=== PATIENT | male | born 1985 | race Caucasian/White ===

== ENCOUNTER 2017-06-08 21:57 | Emergency (ER) | payer OTHER ==
[~2017-06-08] VITALS: Ht 180.3 cm; Wt 117.8 kg
[~2017-06-08 21:57] MED LIST: FLUO40CA8 PO; NAPR1TAB9 PO; PANT40TA PO
[2017-06-08 22:13] VITALS: TEMP 36.7; Ht 180.3 cm; Wt 117.8 kg
[2017-06-08] MEDS ORDERED: KETOROLAC TROMETHAMINE 30 MG/ML VIAL IV STA (22:52)
[2017-06-08] MEDS ORDERED: LIDOCAINE/EPINEPH/TETRACAINE 1 EA SYR EXT STA (23:24)
[2017-06-08 23:26] LABS: BASO % 0.2 %; BASO ABS # 0.02 K/uL (0-0.2); COMPLETE YES; EOS % 1.8 %; HEMATOCRIT 45.5 % (42-52); IG% 0.4 %; MEAN CELL VOLUME 83.2 fL (80-100); MEAN CORPUSCULAR HEMOGLOBIN 29.4 pg (25-34); MEAN CORPUSCULAR HGB CONC 35.4 g/dl (32-36); MEAN PLATELET VOLUME 11.7 fL (7.4-10.4); MONO % 9.3 %; NEUT % 64.3 %; PLATELET COUNT 177 K/uL (130-400); RED BLOOD COUNT 5.47 M/uL (4.7-6.1); WHITE BLOOD COUNT 12.07 K/uL (4.8-10.8)
[2017-06-08] MEDS ORDERED: CEFTRIAXONE SOD INJ 1 GM ADDVIAL IV STA (23:38)
[2017-06-08 23:54] LABS: BUN/CREATININE RATIO 9.8 (10-20); C-REACTIVE PROTEIN 1.87 mg/dl (0-0.29); CALCIUM 8.6 mg/dl (8.5-10.1); CREATININE 1.1 mg/dl (0.60-1.40); POTASSIUM 3.6 mmol/L (3.5-5.1)
[2017-06-09] MEDS ORDERED: CEPHALEXIN 500MG HOME PACK 1 EA BTL PO ONE (01:00)
[2017-06-09] MEDS ORDERED: SEPTRA DS HOME PACK 1 EA VIAL PO ONE (01:00)
[2017-06-09] MEDS ORDERED: CEPH500C PO (01:16)
[2017-06-09] MEDS ORDERED: SULF800T23 PO (01:16)
--- NOTE | 2017-06-09 01:18 | EMERGENCY ROOM VISIT NOTE ---
History First contact with patient: 22:41 Chief Complaint: ELBOW PAIN/INJURY Stated Complaint: RT ELBOW History of Present Illness The patient is a 32 year old male who presents to the Emergency Room with complaints of right elbow pain. The patient states that he has noticed worsening soreness in his right elbow over the past 2 days. He states that he has also noticed some redness. He rates the discomfort a 7/10. He denies any history of elbow issues. He denies any recent injury to the elbow. He denies any fevers/chills. Review of Systems A complete 10 point review of systems was reviewed with the patient with pertinent positives and negatives as per history of present illness. All else were negative. Family History Diabetes mellitus FH: heart disease Hypertension Social History Smoking Status: Never Smoker Alcohol Use: occasionally Drug Use: none Current/Historical Medications Scheduled Cephalexin Monohydrate (Keflex), 500 MG PO QID Fluoxetine (Prozac), 40 MG PO DAILY Pantoprazole Sodium (Protonix), 40 MG PO DAILY Sulfa/Trimethoprim (Bactrim Ds 800MG/160MG), 1 TAB PO BID Physical Exam Vital Signs Date Time Temp Pulse Resp B/P (MAP) Pulse Ox O2 Delivery O2 Flow Rate FiO2 06/09/17 01:20 71 18 134/79 96 Room Air 06/08/17 22:13 36.7 73 16 126/79 97 Room Air Physical Exam VITALS: Vitals are noted on the nurse's note and reviewed by myself. Vital signs stable. GENERAL: This is a 32-year-old male, in no acute distress, nondiaphoretic, well- developed well-nourished. SKIN: Erythema and swelling noted over the right olecranon process. HEART: Regular rate and rhythm without murmurs gallops or rubs. LUNGS: Clear to auscultation bilaterally without wheezes, rales or rhonchi. MUSCULOSKELETAL: There is erythema, edema and tenderness over the olecranon process with a minimal surrounding cellulitis. Full range of motion of the right elbow. Radial pulse 2+. NEURO: Patient was alert and oriented to person place and time. Medical Decision & Procedures ER Provider Diagnostic Interpretation: RIGHT ELBOW: No significant effusion. No acute findings. Laboratory Results 06/08/17 23:05 Red Blood Count 5.47, Mean Corpuscular Volume 83.2, Mean Corpuscular Hemoglobin 29.4, Mean Corpuscular Hemoglobin Concent 35.4, Mean Platelet Volume 11.7, Neutrophils (%) (Auto) 64.3, Lymphocytes (%) (Auto) 24.0, Monocytes (%) (Auto) 9.3, Eosinophils (%) (Auto) 1.8, Basophils (%) (Auto) 0.2, Neutrophils # (Auto) 7.76, Lymphocytes # (Auto) 2.90, Monocytes # (Auto) 1.12, Eosinophils # (Auto) 0.22, Basophils # (Auto) 0.02 06/08/17 23:05 Test 06/08/17 23:05 White Blood Count 12.07 K/uL (4.8-10.8) Red Blood Count 5.47 M/uL (4.7-6.1) Hemoglobin 16.1 g/dL (14.0-18.0) Hematocrit 45.5 % (42-52) Mean Corpuscular Volume 83.2 fL (80-100) Mean Corpuscular Hemoglobin 29.4 pg (25-34) Mean Corpuscular Hemoglobin Concent 35.4 g/dl (32-36) Platelet Count 177 K/uL (130-400) Mean Platelet Volume 11.7 fL (7.4-10.4) Neutrophils (%) (Auto) 64.3 % Lymphocytes (%) (Auto) 24.0 % Monocytes (%) (Auto) 9.3 % Eosinophils (%) (Auto) 1.8 % Basophils (%) (Auto) 0.2 % Neutrophils # (Auto) 7.76 K/uL (1.4-6.5) Lymphocytes # (Auto) 2.90 K/uL (1.2-3.4) Monocytes # (Auto) 1.12 K/uL (0.11-0.59) Eosinophils # (Auto) 0.22 K/uL (0-0.5) Basophils # (Auto) 0.02 K/uL (0-0.2) RDW Standard Deviation 38.3 fL (36.4-46.3) RDW Coefficient of Variation 12.8 % (11.5-14.5) Immature Granulocyte % (Auto) 0.4 % Immature Granulocyte # (Auto) 0.05 K/uL (0.00-0.02) Erythrocyte Sedimentation Rate 12 mm/hr (0-14) Anion Gap 7.0 mmol/L (3-11) Est Creatinine Clear Calc Drug Dose 128.2 ml/min Estimated GFR () 103.9 Estimated GFR (Non- 89.6 BUN/Creatinine Ratio 9.8 (10-20) Calcium Level 8.6 mg/dl (8.5-10.1) C-Reactive Protein 1.87 mg/dl (0-0.29) Chemistry Specimen Hemolysis Medications Administered Medications (Trade) Dose Ordered Sig/Basilio Route Start Time Stop Time Status Last Admin Dose Admin Ketorolac Tromethamine (Toradol Inj) 30 mg NOW STAT IV 06/08/17 22:52 06/08/17 22:53 DC 06/08/17 22:52 30 MG Tetracaine/ Epinephrine/ Lidocaine (L.e.t. Gel 4%/ 1:100/0.5%) 1 ea NOW STAT EXT 06/08/17 23:24 06/08/17 23:25 DC 06/08/17 23:24 1 EA Ceftriaxone Sodium (Rocephin Inj) 1 gm NOW STAT IV 06/08/17 23:38 06/08/17 23:39 DC 06/08/17 23:38 1 GM Cephalexin Monohydrate (Keflex 500MG Home Pack) 1 homepack NOW ONCE PO 06/09/17 01:00 06/09/17 01:01 DC 06/09/17 01:00 1 HOMEPACK Trimethoprim/ Sulfamethoxazole (Sulfameth/ Trimeth Ds 800/ 160MG Home Pack) 1 homepack UD ONCE PO 06/09/17 01:00 06/09/17 01:01 DC 06/09/17 01:00 1 HOMEPACK Procedure Verbal consent was obtained to perform the procedure. LET gel was applied to the wound and left in place for greater than 30 minutes. The area was cleansed with Betadine. An 18-gauge needle was used to attempt aspiration of the olecranon bursa. No fluid was aspirated, however there was a small amount of serous-appearing drainage. Culture was obtained and sent. The patient tolerated the procedure well. ED Course The patient was evaluated as above. Labs were drawn and IV access was obtained. Patient was medicated with IV Toradol. Patient was reevaluated and findings were discussed. He was given 1 g Rocephin. Discharge instructions were reviewed with the patient. The patient verbalized understanding of my assessment and treatment plan and was discharged home in good condition. Medical Decision Differential diagnosis includes olecranon bursitis, septic joint, gout, pseudogout, rheumatoid arthritis, cellulitis, among others. The patient is a 32-year-old male who presents today complaining of right elbow pain and swelling. Exam is consistent with olecranon bursitis. Labs revealed a mild leukocytosis and elevation of CRP. Aspiration was attempted but was unsuccessful. Culture was obtained and sent. I am not suspicious of a septic joint. Patient is afebrile and has full range of motion of the shoulder. He was given a dose of IV Rocephin. Consultation was made with the pharmacist, who recommended Keflex and Bactrim. I did discuss with the patient there is a very small chance he could have a cross reaction due to his penicillin allergy and he should return for any signs of an allergic reaction. He was given orthopedic information for follow-up instructed to follow-up within 48 hours. He was advised to return here for fevers, worsening pain/swelling or any other new/concerning symptoms. He verbalized understanding of my assessment and treatment plan was discharged home in good condition. Medication Reconcilliation Current Medication List: was personally reviewed by me Blood Pressure Screening Patient's blood pressure: Normal blood pressure Impression Primary Impression: Olecranon bursitis of right elbow Departure Information Dispostion Home / Self-Care Condition GOOD Prescriptions Sulfa/Trimethoprim (Bactrim Ds 800MG/160MG) Tab 1 TAB PO BID for 10 Days, #20 TAB Prov: Tori Hope PA-C 06/09/17 Cephalexin Monohydrate (Keflex) 500 Mg Cap 500 MG PO QID for 10 Days, #40 CAP Prov: Tori Hope PA-C 06/09/17 Referrals Mynor Toussaint M.D. (PCP) Mynor Medina M.D. Patient Instructions My [facility] Additional Instructions You were prescribed Bactrim to be taken twice daily as prescribed. This is an antibiotic. All antibiotics have the potential to cause diarrhea. Stop this medication and contact a medical provider if you were to develop any significant adverse side effects including: wheezing, shortness of breath, passing out, vomiting, or a diffuse rash. Always take antibiotics as directed and COMPLETE the ENTIRE course regardless of the improvement of your symptoms. You were prescribed Keflex to be taken 4 times daily as prescribed. This is an antibiotic. All antibiotics have the potential to cause diarrhea. Stop this medication and contact a medical provider if you were to develop any significant adverse side effects including: wheezing, shortness of breath, passing out, vomiting, or a diffuse rash. Always take antibiotics as directed and COMPLETE the ENTIRE course regardless of the improvement of your symptoms. Ibuprofen, 600 mg every 6 hours for the next few days. You may apply warm compresses to the elbow. You have been provided with the contact information for orthopedics. Call them to schedule a follow-up within 2-3 days. Return here for worsening redness, worsening swelling, fevers or any other new/ concerning symptoms.
[2017-06-09 01:20] VITALS: BP 134/79; PULSE 71; O2SAT 96
--- NOTE | 2017-06-09 07:26 | DIAGNOSTIC IMAGING REPORT ---
RIGHT ELBOW 3 VIEWS HISTORY: right elbow pain, redness COMPARISON: None. FINDINGS: There is no fracture or dislocation. Mild soft tissue swelling at the olecranon. No radiopaque foreign bodies. No elbow effusion. IMPRESSION: Mild soft tissue swelling at the olecranon. This could represent a bursitis. No joint effusion. Electronically signed by: Berlin Espinoza M.D. 06/09/2017 7:25 AM Dictated Date/Time: 06/09/2017 7:24 AM
== END 2017-06-09 01:38 | disposition home or self-care (01) ==
LOC: C.ED 21:58 → C.EDA 06-09 01:38
DX: M70.21 Olecranon bursitis, right elbow (principal); D72.829 Elevated white blood cell count, unspecified